=== PATIENT | female | born 1945 | race Caucasian/White ===

== ENCOUNTER 2021-01-25 08:51 | Outpatient (CLI) | payer MEDICARE, SELFPAY ==
[2021-01-25 20:29] LABS: Hematocrit 39.3 % (37.0-47.0); Hemoglobin 14.1 g/dL (12.0-15.0); Mean Corpuscular HGB Conc 35.9 g/dl (32-36); Mean Corpuscular Hemoglobin 32.9 pg (26-34); Mean Corpuscular Volume 91.6 fl (80-100); Mean Platelet Volume 8.8 fl (7.4-10.4); Platelet Count Result 297 k/mm3 (150-375); Red Blood Count 4.29 M/mm3 (4.2-5.4); White Blood Count 5.2 K/mm3 (4.5-10.0)
[2021-01-25 20:33] LABS: Add Urine Microscopic? YES; Appearance Urine Clear (Clear); Bilirubin Urine Negative (Negative); Blood Urine Negative (Negative); Color Urine Amber (Yellow); Glucose Urine UA Negative (Negative); Ketones Urine Negative (Negative); Leukocyte Esterase Ur 1+ LEU/UL (NEGATIVE); Nitrate Urine Positive (Negative); Protein Urine 1+ mg/dL (Negative); Urobilinogen Urine Negative mg/dL (<2.0); WBC Urine 21-30 /hpf (0-3)
[2021-01-25 20:43] LABS: Alanine Aminotransferase 21 U/L (4-35); Albumin Level 5.2 g/dL (3.5-5.1); Alkaline Phosphatase 81 U/L (38-126); Anion Gap 12 mmol/L (8-16); Aspartate Amino Transferase 28 U/L (14-36); Bilirubin,Total 0.6 mg/dL (0.2-1.3); Blood Urea Nitrogen 18 mg/dL (7-17); CRP 1.5 mg/dL (<1.0); Calcium 9.7 mg/dL (8.4-10.2); Carbon Dioxide 27 mmol/L (22-30); Chloride 99 mmol/L (98-107); Cholesterol 168 mg/dL (0-200); Estimated Glomerular Filt Rate > 60; Glucose 132 mg/dL (65-110); HDL Direct 49 mg/dL; Lipase 185 U/L (23-300); Potassium 3.9 mmol/L (3.4-5.0); Sodium 138 mmol/L (137-145); Triglycerides 134 mg/dL (<150)
[2021-01-25 20:49] LABS: Hemoglobin A1C 5.5 % (<5.7)
[2021-01-25 20:52] LABS: LDL Cholesterol Direct 92 mg/dL
[2021-01-25 21:11] LABS: Erythrocyte Sedimentation Rate 19 mm/hr (0-20)
[2021-01-25 22:02] LABS: HAV RESULT Negative (Negative); Hepatitis B Core IgM Result Negative (Negative); Hepatitis B Surface Antigen Negative (Negative)
[2021-01-25 22:07] LABS: Hepatitis C Virus Antibody Negative (Negative)
[2021-01-30 09:01] LABS: Alphahydroxymidazolam NEGATIVE ng/mL (<50); Alphahydroxytriazolam NEGATIVE ng/mL (<50); Amphetamines NEGATIVE ng/mL (<500); Barbiturates NEGATIVE ng/mL (<300); Benzodiazepines POSITIVE ng/mL (<100); Cocaine Metabolite NEGATIVE ng/mL (<100); Codeine NEGATIVE ng/mL (<50); Hydrocodone 1300 ng/mL (<50); Hydromorphone 360 ng/mL (<50); Hydroxyethylflurazepam NEGATIVE ng/mL (<50); Lorazepam NEGATIVE ng/mL (<50); Marijuana Metabolite NEGATIVE ng/mL (<20); Methadone Metabolite NEGATIVE ng/mL (<100); Morphine NEGATIVE ng/mL (<50); Norhydrocodone 1000 ng/mL (<50); Opiates POSITIVE ng/mL (<100); Oxidant NEGATIVE mcg/mL (<200); Temazepam NEGATIVE ng/mL (<50); pH 6.2 (4.5-9.0)
== END 2021-01-25 08:52 | disposition home or self-care (01) ==
PROVIDERS: PCP Family Medicine; Visit Provider Family Medicine
DX: R10.9 Unspecified abdominal pain (principal); E11.9 Type 2 diabetes mellitus without complications; K22.4 Dyskinesia of esophagus; K58.9 Irritable bowel syndrome, unspecified; M32.9 Systemic lupus erythematosus, unspecified; N30.90 Cystitis, unspecified without hematuria; K21.9 Gastro-esophageal reflux disease without esophagitis; I10 Essential (primary) hypertension; Z00.00 Encounter for general adult medical examination without abnormal findings
CPT/HCPCS: 36415; 80053; 80061; 80074; 80299; 81001; 83036; 83690; 84443; 85027; 85652; 86038; 86140; 87086

== ENCOUNTER 2021-01-30 08:36 | Outpatient (CLI) | payer MEDICARE, SELFPAY ==
[2021-01-30 20:19] LABS: Basophils Absolute Auto 0.1 K/mm3 (0.0-0.1); Basophils Percent Auto 0.8 % (0.2-1.2); Eosinophils Absolute Auto 0.1 K/mm3 (0-0.3); Eosinophils Percent Auto 1.2 % (0-4.4); Hematocrit 38.9 % (37.0-47.0); Hemoglobin 13.6 g/dL (12.0-15.0); Immature Granulocyte Absolute 0.02 K/mm3 (0.00-0.031); Immature Granulocyte Percent A 0.3 % (0-0.5); Lymphocytes Absolute Auto 1.49 K/mm3 (0.9-3.2); Lymphocytes Percent Auto 23.1 % (18.3-44.2); Mean Corpuscular Hemoglobin 32.5 pg (26-34); Mean Corpuscular Volume 92.8 fl (80-100); Monocytes Absolute Auto 0.6 K/mm3 (0.1-0.6); Monocytes Percent Auto 9.3 % (2.6-8.5); Neutrophils Absolute Auto 4.2 K/mm3 (1.3-6.7); Neutrophils Percent Auto 65.3 % (45.5-73.1); Platelet Count Result 292 k/mm3 (150-375); Red Blood Count 4.19 M/mm3 (4.2-5.4); Red Cell Distribution Width 12.2 % (11.5-14.5); White Blood Count 6.5 K/mm3 (4.5-10.0)
[2021-01-30 20:26] LABS: Add Urine Microscopic? YES; Appearance Urine Cloudy (Clear); Bilirubin Urine Negative (Negative); Blood Urine Negative (Negative); Calcium Oxalate Crystals Urine Many /hpf; Color Urine Amber (Yellow); Glucose Urine UA Negative (Negative); Ketones Urine Negative (Negative); Leukocyte Esterase Ur Negative LEU/UL (NEGATIVE); Mucus Urine Rare /lpf; Nitrate Urine Negative (Negative); Protein Urine 1+ mg/dL (Negative); RBC Urine 0-2 /hpf (0-2); Squamous Epithelial Cell Urine Rare /hpf (Few); Urobilinogen Urine Negative mg/dL (<2.0); WBC Urine 0-3 /hpf (0-3)
[2021-01-30 21:37] LABS: Alanine Aminotransferase 21 U/L (4-35); Albumin Level 4.9 g/dL (3.5-5.1); Alkaline Phosphatase 95 U/L (38-126); Anion Gap 9 mmol/L (8-16); Aspartate Amino Transferase 28 U/L (14-36); Bilirubin,Total 0.2 mg/dL (0.2-1.3); Blood Urea Nitrogen 19 mg/dL (7-17); Calcium 9.7 mg/dL (8.4-10.2); Carbon Dioxide 27 mmol/L (22-30); Chloride 102 mmol/L (98-107); Estimated Glomerular Filt Rate 54; Glucose 119 mg/dL (65-110); Lipase 215 U/L (23-300); Sodium 138 mmol/L (137-145)
== END 2021-01-30 08:37 | disposition home or self-care (01) ==
PROVIDERS: PCP Family Medicine; Visit Provider Family Medicine
DX: M54.9 Dorsalgia, unspecified (principal); R10.9 Unspecified abdominal pain; R53.83 Other fatigue
CPT/HCPCS: 36415; 80053; 81001; 83690; 85025

== ENCOUNTER 2021-01-31 10:41 | Outpatient (CLI) | payer MEDICARE, SELFPAY | END 2021-01-31 10:42 | disposition home or self-care (01) | LOC: ANHBWCLAB 10:42 | PROVIDERS: PCP Family Medicine; Visit Provider Family Medicine | DX: M54.9 Dorsalgia, unspecified (principal); R10.9 Unspecified abdominal pain; R19.7 Diarrhea, unspecified; R53.83 Other fatigue | CPT/HCPCS: 87045; 87427 ==

== ENCOUNTER 2021-02-08 09:21 | Outpatient (CLI) | payer MEDICARE, SELFPAY ==
--- NOTE | ~2021-02-08 | CT_ITS ---
EXAMINATION: CT abdomen pelvis wo con DATE: 02/08/2021 10:02 INDICATION: Left lower quadrant abdominal pain TECHNIQUE: Computed tomography (CT) of the abdomen and pelvis was performed without intravenous contr ast. Automated exposure control and iterative reconstruction technique were employed. Exam dose: 393 .72 mGy-cm total exam DLP. COMPARISON: 07/08/2017 CT abdomen pelvis FINDINGS: The lung bases are clear. Normal heart size. No pericardial or pleural effusion. Status post cholecystectomy. The liver, spleen, pancreas, and adrenal glands and kidneys are unremark able. No bile duct or pancreatic duct dilatation. No urinary tract calculus or hydroureteronephrosis. There is extensive calcification of the abdominal aorta but no abdominal aortic aneurysm. Bilateral i liac and femoral arterial calcifications. No intraperitoneal or retroperitoneal or pelvic mass lesion or adenopathy or ascites. Normal appendix. Diverticulosis of the left colon; no CT evidence of diverticulitis. No bowel obstruc tion, bowel wall thickening, pneumatosis or intraperitoneal free air. The uterus is surgically absent. Included skeletal structures are unremarkable. IMPRESSION: Diverticulosis of the colon; no CT evidence of diverticulitis Normal appendix Status post cholecystectomy Status post hysterectomy Reviewed, dictated and finalized at [facility]. Reviewed, dictated and finalized at [facility].
== END 2021-02-08 09:22 ==
LOC: MICIMG 09:23
PROVIDERS: PCP Family Medicine; Visit Provider Family Medicine
DX: R10.9 Unspecified abdominal pain (principal); K57.30 Diverticulosis of large intestine without perforation or abscess without bleeding; Z90.49 Acquired absence of other specified parts of digestive tract
CPT/HCPCS: 74176

== ENCOUNTER 2021-02-15 10:41 | Emergency (ER) | payer MEDICARE, SELFPAY ==
--- NOTE | ~2021-02-15 | XR_ITS ---
EXAMINATION: XR barium swallow DATE: 02/15/2021 13:44 INDICATION: Dysphagia. TECHNIQUE: The patient drank thick barium, gas-producing crystals, and thin barium. Fluoroscopy of th e hypopharynx and esophagus was performed. Fluoroscopy exposure time was 0.7 minutes. The total numbe r of images was 198. The dose-area product was 0.846 Gy-cm^2. COMPARISON: CT abdomen and pelvis 02/08/2021 FINDINGS: There is no mass or stricture of the esophagus. There is mildly decreased primary and secon ida esophageal peristalsis. No abnormal tertiary waves. There is no hiatal hernia. IMPRESSION: 1. Mild esophageal dysmotility. Reviewed, dictated and finalized at [facility].
[2021-02-15 11:18] VITALS: BP 154/88; PULSE 109; RESP 18; TEMP 36.4; O2SAT 97
--- NOTE | 2021-02-15 12:37 | PC.NURSE ---
patient requests her blood sugar checked due to patient felling low at this time. Patients BS at this time is 81
[2021-02-15 12:39] VITALS: PULSE 93; RESP 19; O2SAT 98
[2021-02-15 12:39] LABS: Glucose Point of Care 81 mg/dl (65-105)
--- NOTE | 2021-02-15 12:41 | ECG_ITS ---
Measurements Intervals [place] Rate: 93 P: 71 MN: 134 QRS: 62 QRSD: 133 T: 24 QT: 370 QTc: 462 Interpretive Statements SINUS RHYTHM POSSIBLE LEFT ATRIAL ENLARGEMENT RIGHT BUNDLE BRANCH BLOCK BASELINE ARTIFACT- II, III, AVR, AVL, AVF ABNORMAL ECG Electronically Signed On 02-15-2021 20:02:37 CDT by Samuel Adams D.O.
--- NOTE | 2021-02-15 12:41 | PC.NURSE ---
Patient states that her heart rate is high and feels that it is fluttering. EKG ordered at this time.
--- NOTE | 2021-02-15 12:45 | PC.NURSE ---
Patient refusing any other tests at this time, refusing EKG at this time.
[2021-02-15 12:48] LABS: Add Urine Microscopic? NO; Appearance Urine Clear (Clear); Bilirubin Urine Negative (Negative); Blood Urine Negative (Negative); Color Urine Yellow (Yellow); Glucose Urine UA Negative (Negative); Ketones Urine Negative (Negative); Leukocyte Esterase Ur Negative LEU/UL (Negative); Nitrate Urine Negative (Negative); Protein Urine Negative (Negative); Urobilinogen Urine Negative mg/dL (<2.0)
[2021-02-15 13:07] VITALS: PULSE 95
[2021-02-15 13:35] LABS: Basophils Percent Auto 0.7 % (0.2-1.2); Eosinophils Absolute Auto 0.1 K/mm3 (0-0.3); Eosinophils Percent Auto 1.3 % (0-4.4); Hematocrit 37.3 % (37.0-47.0); Hemoglobin 13.2 g/dL (12.0-15.0); Immature Granulocyte Absolute 0.01 K/mm3 (0.00-0.031); Immature Granulocyte Percent A 0.2 % (0-0.5); Lymphocytes Absolute Auto 1.58 K/mm3 (0.9-3.2); Lymphocytes Percent Auto 29.4 % (18.3-44.2); Mean Corpuscular HGB Conc 35.4 g/dl (32-36); Mean Corpuscular Hemoglobin 33.2 pg (26-34); Mean Corpuscular Volume 93.7 fl (80-100); Mean Platelet Volume 8.1 fl (7.4-10.4); Monocytes Absolute Auto 0.5 K/mm3 (0.1-0.6); Monocytes Percent Auto 8.8 % (2.6-8.5); Neutrophils Absolute Auto 3.2 K/mm3 (1.3-6.7); Neutrophils Percent Auto 59.6 % (45.5-73.1); Platelet Count Result 256 k/mm3 (150-375); Red Blood Count 3.98 M/mm3 (4.2-5.4); Red Cell Distribution Width 12.1 % (11.5-14.5); White Blood Count 5.4 K/mm3 (4.5-10.0)
[2021-02-15 13:44] LABS: Anion Gap 9 mmol/L (8-16); Blood Urea Nitrogen 13 mg/dL (7-17); Calcium 9.8 mg/dL (8.4-10.2); Carbon Dioxide 29 mmol/L (22-30); Chloride 102 mmol/L (98-107); Estimated CRCL calculation 43 ml/min; Estimated Glomerular Filt Rate > 60; Glucose 85 mg/dL (65-110); Potassium 4.1 mmol/L (3.4-5.0); Sodium 140 mmol/L (137-145)
--- NOTE | 2021-02-15 14:10 | ED.GENADULT ---
HPI - General Adult General Chief complaint: Unspecified Stated complaint: something stuck in throat since September Time Seen by Provider: 02/15/21 12:56 History of Present Illness HPI narrative: Patient is a 75-year-old female who presents ER with reports of difficulty swallowing. Feels like she has trouble with her food and medications. Ongoing for months. She saw her GI physician several months ago who prescribed her Protonix due to esophagitis. At that time she also had some oral thrush which is resolved. She has no fevers or chills or sweats. No productive cough or difficulty breathing. The only time she has difficulty breathing is when she feels like she is choking. No alleviating factors. Related Data Home Medications Medication Instructions Recorded Confirmed amlodipine 10 mg tablet 10 mg PO DAILY 01/23/21 01/23/21 atorvastatin 10 mg tablet 10 mg PO DAILY 01/23/21 01/23/21 lisinopril 5 mg tablet 5 mg PO BID 01/23/21 01/23/21 metformin 500 mg tablet 500 mg PO BID 01/23/21 01/23/21 Allergies Allergy/AdvReac Type Severity Reaction Status Date / Time Iodinated Contrast Media Allergy Mild HIVES Unverified 01/23/21 10:13 Sulfa (Sulfonamide Allergy Unknown Verified 01/23/21 10:13 Antibiotics) Review of Systems Review of Systems: All systems reviewed & are unremarkable except as noted in HPI and below Constitutional: Constitutional: Denies fatigue and Denies fever(s) ENT: Reports dysphagia, Denies nasal congestion and Denies sore throat Cardiovascular: Cardiovascular: Denies chest pain Respiratory: Respiratory: Denies cough, Denies dyspnea and Denies wheezing PMFSH Past Medical History Medical History Colonospasm Diabetes FHx: cholecystectomy SLE (systemic lupus erythematosus related syndrome) Tachycardia Surgical History Surgical History History of colon surgery History of hysteroscopy Social History Social History Smoking packs per day: 0.5 Smoking cigarettes per day: 10.0 Smoking status: Current every day smoker Alcohol intake: never Substance use: never Exam Narrative: GENERAL: Well-appearing, well-nourished, and in no acute distress. HEAD: Normocephalic, atraumatic. ENT: Mucous membranes moist. Normal-appearing posterior oropharynx. CHEST: Clear to auscultation. No respiratory distress. HEART: Regular rate and rhythm. Normal peripheral pulses. ABDOMEN: Soft, nontender, nondistended. EXTREMITIES: Normal range of motion. No edema. SKIN: Warm, dry, no rash. NEURO: Alert and oriented x3. PSYCH: Normal mood and affect. Course Course Emergency Course: Patient informed of results. GI would like pt to f/u in clinic. No meds at this time. Vital Signs Vital signs: Vital Signs Temperature 97.5 F L 02/15/21 11:18 Pulse Rate 109 H 02/15/21 11:18 Respiratory Rate 18 02/15/21 11:18 Blood Pressure 154/88 H 02/15/21 11:18 Pulse Oximetry 97 02/15/21 11:18 Temperature 97.5 F L 02/15/21 11:18 Pulse Rate 95 02/15/21 13:07 Respiratory Rate 19 02/15/21 12:39 Blood Pressure 154/88 H 02/15/21 11:18 Pulse Oximetry 98 02/15/21 12:39 Medical Decision Making Vital Signs Vital Signs: Vital Signs Temperature 97.5 F L 02/15/21 11:18 Pulse Rate 109 H 02/15/21 11:18 Respiratory Rate 18 02/15/21 11:18 Blood Pressure 154/88 H 02/15/21 11:18 Pulse Oximetry 97 02/15/21 11:18 Temperature 97.5 F L 02/15/21 11:18 Pulse Rate 95 02/15/21 13:07 Respiratory Rate 19 02/15/21 12:39 Blood Pressure 154/88 H 02/15/21 11:18 Pulse Oximetry 98 02/15/21 12:39 Lab Data Result diagrams: 02/15/21 13:27 02/15/21 13:27 Labs: Lab Results 02/15/21 02/15/21 02/15/21 Range/Units 12:30 12:36 13:27 WBC 5.4 (4.5-10.0) K/mm3 RBC 3.98 L (4.2-5.4)
== END 2021-02-15 15:01 | disposition home or self-care (01) ==
PROVIDERS: Physician Assistant; Emergency Provider Emergency Medicine; PCP Family Medicine
DX: K22.4 Dyskinesia of esophagus (principal); E11.9 Type 2 diabetes mellitus without complications; M32.9 Systemic lupus erythematosus, unspecified; F17.210 Nicotine dependence, cigarettes, uncomplicated; I45.10 Unspecified right bundle-branch block; R94.31 Abnormal electrocardiogram [ECG] [EKG]; Z79.84 Long term (current) use of oral hypoglycemic drugs
CPT/HCPCS: 36415; 74220; 80048; 81003; 82948; 85025; 93005; 99283

== ENCOUNTER 2021-02-21 07:53 | Outpatient (CLI) | payer MEDICARE, SELFPAY ==
[2021-02-21 19:25] LABS: Hepatitis B Surface Antigen Negative (Negative)
[2021-02-21 19:31] LABS: HAV RESULT Negative (Negative); Hepatitis B Core IgM Result Negative (Negative)
[2021-02-21 19:42] LABS: Hepatitis C Virus Antibody Negative (Negative)
[2021-03-01 12:02] LABS: ALT 15 U/L (6-29); Alpha-2-Macroglobulin 293 mg/dL (106-279); Apolipoprotein A1 88 mg/dL (101-198); Fibrosis Score 0.44; Fibrosis Stage F1-F2; GGT 13 U/L (3-65); Haptoglobin 135 mg/dL (43-212); Necroinflammat Act Grade A0; Total Bilirubin 0.3 mg/dL (0.2-1.2)
== END 2021-02-21 07:54 | disposition home or self-care (01) ==
PROVIDERS: PCP Family Medicine; Visit Provider Family Medicine
DX: K75.81 Nonalcoholic steatohepatitis (NASH) (principal); R53.83 Other fatigue
CPT/HCPCS: 36415; 80074; 81596

== ENCOUNTER 2021-05-15 15:14 | Emergency (ER) | payer MEDICARE, SELFPAY ==
[2021-05-15 15:49] VITALS: BP 127/76; PULSE 114; RESP 18; TEMP 36.9; O2SAT 93
== END 2021-05-15 16:36 | disposition left against medical advice (07) ==
LOC: ANHED 16:54
PROVIDERS: PCP Family Medicine
DX: S01.81XA Laceration without foreign body of other part of head, initial encounter (principal)
CPT/HCPCS: 99199

== ENCOUNTER 2021-05-21 08:04 | Outpatient (CLI) | payer MEDICARE, SELFPAY ==
--- NOTE | ~2021-05-21 | CT_ITS ---
EXAMINATION: CT brain wo con DATE: 05/21/2021 08:39 INDICATION: Unspecified head injury. TECHNIQUE: Computed tomography (CT) of the head was performed without intravenous contrast. The dose- length product was 681.00 mGy-cm. Automated exposure control and iterative reconstruction technique w ere employed. COMPARISON: CT dated 03/04/2018 FINDINGS: No acute intracranial hemorrhage, infarction, mass or mass effect. No ventriculomegaly or m idline shift. Basilar cisterns are patent. There are scattered mild periventricular and subcortical w jalen matter changes, most likely related to small vessel ischemic disease (microangiopathy). Paranasa l sinuses and mastoids are pneumatized. No depressed skull fractures. There are bilateral fractures o f the mandibular condylar necks which were not definitely seen on prior examination. Zygomatic arches are intact. There is intracranial atherosclerosis. IMPRESSION: 1. No acute intracranial abnormality. 2: Bilateral fractures of the mandibular condylar necks without significant displacement. Reviewed, dictated and finalized at location [facility]. MACY TECHNICIAN PER DIEM IMPRESSION: 1. No acute intracranial abnormality. 2: Bilateral fractures of the mandibular condylar necks without significant di splacement.
== END 2021-05-21 08:05 | disposition home or self-care (01) ==
LOC: ANHIMG 08:11
PROVIDERS: PCP Family Medicine; Visit Provider Family Medicine
DX: S02.612A Fracture of condylar process of left mandible, initial encounter for closed fracture (principal); S02.611A Fracture of condylar process of right mandible, initial encounter for closed fracture; X58.XXXA Exposure to other specified factors, initial encounter
CPT/HCPCS: 70450; 72100; 73030

== ENCOUNTER 2021-05-21 14:03 | Outpatient (CLI) | payer MEDICARE, SELFPAY ==
--- NOTE | ~2021-05-21 | XR_ITS ---
XR lumbar spine 2-3V DATE: 05/21/2021 14:25 INDICATION: Fall, back injury. Low back pain, mainly on the right. TECHNIQUE: AP, lateral, coned lateral lumbosacral views COMPARISON: AP lumbar spine 03/04/2018 02/08/2021 CT abdomen pelvis FINDINGS: There is mild levoscoliosis of the lower thoracic and lumbar spine. There is diffuse osteopenia. There is a transitional lumbosacral vertebra. There is moderate anterior wedging and loss of height of a vertebra 5 segments superior to the transi tional segment, a new finding since 03/04/2018 CTA chest examination. Status post cholecystectomy. Extensive abdominal aortic calcification without evidence of aneurysm. IMPRESSION: Recent moderate compression fracture of a thoracolumbar area vertebra 5 segments above th e transitional lumbosacral vertebra Diffuse osteopenia Mild multilevel degenerative disc disease Mild Levoscoliosis Reviewed, dictated and finalized at [facility]. INE FITTER IMPRESSION: Recent moderate compression fracture of a thoracolumbar area verteb ra 5 segments above the transitional lumbosacral vertebra Diffuse osteopenia Mild multilevel degenerative disc disease Mild Levoscoliosis
--- NOTE | ~2021-05-21 | XR_ITS ---
XR shoulder LT min 2V DATE: 05/21/2021 14:25 INDICATION: Fall. Left shoulder pain TECHNIQUE: 4 views COMPARISON: None FINDINGS: There is diffuse osteopenia. No fracture or dislocation, periosteal reaction or bone destruction or abnormal soft tissue calcifica tion of the left shoulder. IMPRESSION: Osteopenia No fracture or dislocation or abnormal calcification Reviewed, dictated and finalized at location [facility]. N ENERGY MARKETING ANALYST
== END 2021-05-21 14:04 | disposition home or self-care (01) ==
PROVIDERS: PCP Family Medicine; Visit Provider Family Medicine
DX: M51.36 Other intervertebral disc degeneration, lumbar region (principal); M85.88 Other specified disorders of bone density and structure, other site; M85.812 Other specified disorders of bone density and structure, left shoulder
CPT/HCPCS: 72100; 73030